=== PATIENT | female | born 1970 | race Caucasian/White ===

== ENCOUNTER 2019-10-27 23:00 | Emergency (ER) | payer BC ==
[2019-10-27] MEDS ORDERED: Sodium Chloride 0.9% 1,000 ML IV ONE (23:28)
[2019-10-27] MEDS ORDERED: Loperamide 2 MG Tab PO ONE (23:28)
--- NOTE | 2019-10-27 23:45 | EDM.PDOC ---
ED HPI GENERAL MEDICAL PROBLEM - General Chief Complaint: General Stated Complaint: Lower extremeity pain Time Seen by Provider: 10/27/19 23:19 Source of Information: Reports: Patient, EMS, Family History Limitations: Reports: Other (Patient not very helpful, uncertain if it is due to illness or behavioral issues or combination of both) - History of Present Illness INITIAL COMMENTS - FREE TEXT/NARRATIVE: Patient discharged yesterday from [facility] s/p left knee surgery and reportedly called EMS due to left leg pain. Ambulance concerned that patient had delayed cap refill. IV access obtained. Brought to ER for evaluation. Upon arrival patient moaning at times, keeps eyes shut. Alert and oriented however when spoken to. Assessment of lower extremities shows that both feet show a little dusky coloration in toes, but pulses equal. Left leg still orange from antiseptic scrub used for surgery. No obvious delayed capillary refill noted. It took multiple times asking patient/ why she presented to the ER/what changed today before finally getting an answer that inferred multiple loose stools that started this morning. No report of emesis. No specific complaint of fever/HEENT changes/Resp/CV. No reports of blood stool. No urinary track changes. No specific complaints of focal weakness. Did say to EMS that her left leg was numb. Not currently complaining of numbness when asked to report what specific things changed today/new symptoms she is experiencing. says patient is "always in pain". 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 Bilateral Lower Pain Score (Numeric/FACES): 6 - Related Data Allergies Allergy/AdvReac Type Severity Reaction Status Date / Time acetaminophen Allergy Nausea and Verified 11/16/18 20:40 [From Darvocet-N] Vomiting NSAIDS (Non-Steroidal Allergy Nausea and Verified 11/16/18 20:40 Anti-Inflamma Vomiting propoxyphene Allergy Nausea and Verified 11/16/18 20:40 [From Darvocet-N] Vomiting zaleplon [From Sonata] Allergy Other Verified 11/16/18 20:40 Home Meds: Home Meds Aspirin [Halfprin] 81 mg PO DAILY 11/16/18 [History] Doxepin [SINEquan] 25 mg PO BEDTIME PRN 11/16/18 [History] Gabapentin [Neurontin] 1,200 mg PO BEDTIME 11/16/18 [History] Gabapentin [Neurontin] 900 mg PO DAILY 11/16/18 [History] Omeprazole 20 mg PO BID 11/16/18 [History] Propranolol HCl [Propranolol] 60 mg PO BEDTIME 11/16/18 [History] QUEtiapine Fumarate [Quetiapine Fumarate] 25 mg PO TID 11/16/18 [History] Venlafaxine HCl [Venlafaxine ER] 300 mg PO DAILY 11/16/18 [History] busPIRone HCl [Buspirone HCl] 15 mg PO BID 11/16/18 [History] hydrOXYzine HCl [hydrOXYzine] 25 mg PO BID 11/16/18 [History] oxyCODONE HCl/Acetaminophen [Oxycodone-Acetaminophen 5-325] 1 tab PO Q8H PRN [History] Past Medical History HEENT History: Reports: Impaired Vision Gastrointestinal History: Reports: GERD 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 Psychiatric History: Reports: Anxiety, Depression, Suicidal Ideation Endocrine/Metabolic History: Reports: Obesity/BMI 30+ - Past Surgical History Neurological Surgical History: Reports: Other (See Below) (back surgery) Musculoskeletal Surgical History: Reports: Other (See Below) Other Musculoskeletal Surgeries/Procedures:: Surgical repairs to foot and knee Social & Family History - Tobacco Use Smoking Status *Q: Never Smoker Second Hand Smoke Exposure: No - Caffeine Use Caffeine Use: Reports: Coffee - Recreational Drug Use Recreational Drug Use: No ED ROS GENERAL - Review of Systems Review Of Systems: See Below (patient very difficult to obtain history from) Constitutional: Reports: Malaise. Denies: Fever, Chills, Diaphoresis HEENT: Reports: No Symptoms Respiratory: Reports: No Symptoms. Denies: Shortness of Breath Cardiovascular: Reports: No Symptoms GI/Abdominal: Reports: Abdominal Pain, Diarrhea. Denies: Black Stool, Bloody Stool, Constipation, Difficulty Swallowing, Distension, Nausea, Vomiting Musculoskeletal: Reports: Other (chronic pain patient/multiple areas, does not report acute pain changes) Skin: Reports: Other (recent surgery left knee. No new redness/swelling reported. ) Neurological: Reports: Numbness (left leg), Difficulty Walking. Denies: Confusion, Headache, Seizure, Syncope Psychiatric: Reports: Agitation, Anxiety ED EXAM, GENERAL - Physical Exam Exam: See Below Exam Limited By: Other (obese/poor movement ability) General Appearance: Alert, Obese, Other (keeps eyes shut, moans periodically, restless) Eye Exam: Bilateral Eye: EOMI, PERRL Nose: No: Nasal Deformity, Nasal Swelling, Nasal Drainage Throat/Mouth: Normal Voice, No Airway Compromise, Other (dry lips) Head: Atraumatic, Normocephalic Neck: Supple Respiratory/Chest: No Respiratory Distress, Lungs Clear, Normal Breath Sounds, No Accessory Muscle Use, Chest Non-Tender Cardiovascular: No Murmur, Tachycardia Peripheral Pulses: 2+: Radial (L), Radial (R), Dorsalis Pedis (L), Dorsalis Pedis (R) GI/Abdominal: Normal Bowel Sounds, Soft, Tender (diffuse tenderness all 4 quadrants). No: Guarding, Rigid, Rebound (Female) Exam: Deferred Rectal (Female) Exam: Deferred Extremities: Other (Patient observed to be wiggling toes/moving all four limbs spontaneously when on ER bed. However when asked to move her feet/push against resistance she said she could not. Equal pulses extremities. Dusky coloration to toes bilaterally/equally. No obvious circulation deficit left compared to right. ). No: Increased Warmth Neurological: Alert, Oriented, Slow to Respond Psychiatric: Anxious Skin Exam: Warm, Dry Course - Vital Signs Last Recorded V/S: Last Vital Signs Temp 36.8 C 10/27/19 23:09 Pulse 117 H 10/27/19 23:09 Resp 24 H 10/27/19 23:09 BP 123/62 10/27/19 23:09 Pulse Ox 100 10/27/19 23:09 - Orders/Labs/Meds Orders: Active Orders 24 hr Category Date Time Status CBC WITH AUTO DIFF [HEME] Stat Lab 10/27/19 23:03 Ordered CMP [COMPREHENSIVE METABOLIC PN,CMP] [CHEM] Stat Lab 10/27/19 23:03 Ordered D-DIMER QUANTITATIVE [COAG] Stat Lab 10/27/19 23:04 Ordered INR,PT,PROTHROMBIN TIME [COAG] Stat Lab 10/27/19 23:03 Ordered Sodium Chloride 0.9% [Normal Saline] 1,000 ml Med 10/27/19 23:28 Ordered IV .BOLUS diazePAM [Valium] Med 10/27/19 23:45 Once 5 mg IVPUSH ONETIME ONE Medication Orders Sodium Chloride (Normal Saline) 1,000 mls @ 999 mls/hr IV .BOLUS ONE Stop: 10/28/19 00:28 Meds: Medications Generic Name Dose Route Start Last Admin Trade Name Freq PRN Reason Stop Dose Admin Sodium Chloride 1,000 mls @ 999 mls/hr 10/27/19 23:28 Normal Saline IV 10/28/19 00:28 .BOLUS ONE Discontinued Medications Generic Name Dose Route Start Last Admin Trade Name Freq PRN Reason Stop Dose Admin Loperamide HCl 4 mg 10/27/19 23:28 Imodium Ad PO 10/27/19 23:29 ONETIME ONE - Re-Assessments/Exams Free Text/Narrative Re-Assessment/Exam: Given what history we were able to obtain, it appears that main issue today has been loose stools. Lab unable to draw off of IV. Made attempts to obtain blood for labs but patient screamed and ultimately refused any additional attempts, saying it caused her 'muscle spasms'. No obvious spasming noted. It was explained to patient that it was very important to obtain labs in order to assist in assessing for infection/electrolyte imbalance but patient continued to refuse. She ultimately wanted to be transferred to [facility] and be further assessed there. She does appear dehydrated given the dry lips, tachycardia, and history of diarrhea. No obvious signs of infection noted in left leg. Suspect behavioral component given her behavior in the ER/ some aspects of attention-seeking behavior/history of chronic pain and multiple psych meds. Refusing to move her feet during exam and claiming she can't right after being observed to move them spontaneously and frequently prior to exam is example. She is in need of having labs performed. Ortho/US also available for further evaluation of left leg if indicated. 10/28/19 00:09 Patient accepted for transfer to [facility] by Departure - Departure Time of Disposition: 00:06 Disposition: DC/Tfer to Acute Hospital 02 Condition: Good Clinical Impression: Anxiety, Diarrhea with dehydration, Uncooperative behavior, Status post left knee surgery - Discharge Information Forms: ED Department Discharge - My Orders Last 24 Hours: My Active Orders 10/27/19 23:03 CBC WITH AUTO DIFF [HEME] Stat CMP [COMPREHENSIVE METABOLIC PN,CMP] [CHEM] Stat INR,PT,PROTHROMBIN TIME [COAG] Stat 10/27/19 23:04 D-DIMER QUANTITATIVE [COAG] Stat 10/27/19 23:28 Sodium Chloride 0.9% [Normal Saline] 1,000 ml IV .BOLUS 10/27/19 23:45 diazePAM [Valium] 5 mg IVPUSH ONETIME ONE - Assessment/Plan Last 24 Hours: My Active Orders 10/27/19 23:03 CBC WITH AUTO DIFF [HEME] Stat CMP [COMPREHENSIVE METABOLIC PN,CMP] [CHEM] Stat INR,PT,PROTHROMBIN TIME [COAG] Stat 10/27/19 23:04 D-DIMER QUANTITATIVE [COAG] Stat 10/27/19 23:28 Sodium Chloride 0.9% [Normal Saline] 1,000 ml IV .BOLUS 10/27/19 23:45 diazePAM [Valium] 5 mg IVPUSH ONETIME ONE
== END 2019-10-28 00:40 ==
LOC: LL.ED 23:00
DX: E86.0 Dehydration (principal); R19.7 Diarrhea, unspecified; F41.9 Anxiety disorder, unspecified; R46.89 Other symptoms and signs involving appearance and behavior; Z98.890 Other specified postprocedural states; K21.9 Gastro-esophageal reflux disease without esophagitis; M19.90 Unspecified osteoarthritis, unspecified site; F32.9 Major depressive disorder, single episode, unspecified; E66.9 Obesity, unspecified; Z68.45 Body mass index [BMI] 70 or greater, adult; Z88.8 Allergy status to other drugs, medicaments and biological substances; Z79.82 Long term (current) use of aspirin; Z79.899 Other long term (current) drug therapy
CPT/HCPCS: 96361; 96374; 99284-25; A9270-GY; J3360; J7030

== ENCOUNTER 2019-10-29 07:11 | Observation (INO) | payer BC ==
[2019-10-29 07:49] LABS: CHLORIDE,CL 103 mmol/L (98-107); SODIUM,NA 140 mmol/L (136-145)
[2019-10-29] MEDS ORDERED: Sodium Chloride 0.9% 10 ML Syringe FLUSH PRN (07:54)
--- NOTE | 2019-10-29 08:02 | EDM.PDOC ---
ED HPI GENERAL MEDICAL PROBLEM - General Chief Complaint: Gastrointestinal Problem Stated Complaint: nausea, vomitting, diarrhea Time Seen by Provider: 10/29/19 07:42 Source of Information: Reports: Patient History Limitations: Reports: No Limitations - History of Present Illness INITIAL COMMENTS - FREE TEXT/NARRATIVE: Patient returns to ER complaining of continued nausea/emesis/loose stools. Was seen for same late Tuesday night near midnight. Had vomiting and loose stools all day. Labs performed but patient refused to have another IV attempt performed and wanted to go to [place] for any additional attempts. She reports that [facility] performed abdominal and chest xrays as well as labs early yesterday morning and said that nothing specifically was identified. They felt that patient had viral gastroenteritis. 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 Imodium slowed the stools. Nausea meds did not help much. She estimates approx 4 loose stools since midnight and about 10 episodes of emesis. Non-bloody. Has had chills. No fever. Cannot keep anything down, even sips water. Complains of metal taste in mouth. Diffuse abdominal pain. Denies cold symptoms/HEENT changes. No respiratory complaints such as cough/SOB Denies chest pain/CV changes. No report of UTI complaints/hematuria. Not complaining of any muscle spasms/neuro changes at this time. Abdominal Pain Score (Numeric/FACES): 5 - Related Data Allergies Allergy/AdvReac Type Severity Reaction Status Date / Time acetaminophen Allergy Nausea and Verified 11/16/18 20:40 [From Darvocet-N] Vomiting NSAIDS (Non-Steroidal Allergy Nausea and Verified 11/16/18 20:40 Anti-Inflamma Vomiting propoxyphene Allergy Nausea and Verified 11/16/18 20:40 [From Darvocet-N] Vomiting zaleplon [From Sonata] Allergy Other Verified 11/16/18 20:40 Home Meds: Home Meds Aspirin [Halfprin] 81 mg PO DAILY 11/16/18 [History] Doxepin [SINEquan] 25 mg PO BEDTIME PRN 11/16/18 [History] Gabapentin [Neurontin] 1,200 mg PO BEDTIME 11/16/18 [History] Gabapentin [Neurontin] 900 mg PO DAILY 11/16/18 [History] Omeprazole 20 mg PO BID 11/16/18 [History] Propranolol HCl [Propranolol] 60 mg PO BEDTIME 11/16/18 [History] QUEtiapine Fumarate [Quetiapine Fumarate] 25 mg PO TID 11/16/18 [History] Venlafaxine HCl [Venlafaxine ER] 300 mg PO DAILY 11/16/18 [History] busPIRone HCl [Buspirone HCl] 15 mg PO BID 11/16/18 [History] hydrOXYzine HCl [hydrOXYzine] 25 mg PO BID 11/16/18 [History] oxyCODONE HCl/Acetaminophen [Oxycodone-Acetaminophen 5-325] 1 tab PO Q8H PRN [History] Past Medical History HEENT History: Reports: Impaired Vision Gastrointestinal History: Reports: GERD 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 Psychiatric History: Reports: Anxiety, Depression, Suicidal Ideation Endocrine/Metabolic History: Reports: Obesity/BMI 30+ - Past Surgical History Neurological Surgical History: Reports: Other (See Below) Musculoskeletal Surgical History: Reports: Other (See Below) Other Musculoskeletal Surgeries/Procedures:: Surgical repairs to foot and knee Social & Family History - Tobacco Use Smoking Status *Q: Never Smoker Second Hand Smoke Exposure: No - Caffeine Use Caffeine Use: Reports: Soda - Recreational Drug Use Recreational Drug Use: No ED ROS GENERAL - Review of Systems Review Of Systems: Comprehensive ROS is negative, except as noted in HPI. ED EXAM, GENERAL - Physical Exam Exam: See Below Exam Limited By: No Limitations General Appearance: Obese, Other (Awake, appears uncomfortable) Eye Exam: Bilateral Eye: EOMI, PERRL Nose: No: Nasal Deformity, Nasal Swelling Throat/Mouth: Normal Voice, No Airway Compromise, Other (dry lips) Head: Atraumatic, Normocephalic Neck: Supple, Non-Tender Respiratory/Chest: No Respiratory Distress, Lungs Clear, Normal Breath Sounds, No Accessory Muscle Use, Chest Non-Tender Cardiovascular: No Murmur, Tachycardia Peripheral Pulses: 2+: Radial (L), Radial (R) GI/Abdominal: Other (bowel sounds present all quads. Diffuse tenderness with palpation all quads but more pronounced in RUQ) (Female) Exam: Deferred Rectal (Female) Exam: Deferred Back Exam: Other (no acute changes identified) Extremities: Non-Tender, Slow Capillary Refill (3 sec) Neurological: Alert, Oriented, Normal Cognition Psychiatric: Flat Affect Skin Exam: Warm, Dry, Intact, Normal Color Course - Vital Signs Last Recorded V/S: Last Vital Signs Temp 36.1 C 10/29/19 07:11 Pulse 111 H 10/29/19 07:11 Resp 20 10/29/19 07:11 BP 143/82 H 10/29/19 07:11 Pulse Ox 100 10/29/19 07:11 - Orders/Labs/Meds Orders: Active Orders 24 hr Category Date Time Status CULTURE BLOOD [BC] Stat Lab 10/29/19 07:56 Ordered CULTURE BLOOD [BC] Stat Lab 10/29/19 07:56 Ordered LACTIC ACID [CHEM] Stat Lab 10/29/19 07:55 Ordered MG [MAGNESIUM] [CHEM] Stat Lab 10/29/19 07:55 Ordered UA W/MICROSCOPIC [URIN] Stat Lab 10/29/19 07:23 Ordered Sodium Chloride 0.9% [Saline Flush] Med 10/29/19 07:23 Active 10 ml FLUSH ASDIRECTED PRN Sodium Chloride 0.9% [Saline Flush] Med 10/29/19 07:54 Ordered 10 ml FLUSH ASDIRECTED PRN Blood Culture x2 Reflex Set [OM.PC] Stat Oth 10/29/19 07:55 Ordered Saline Lock Insert [OM.PC] Routine Oth 10/29/19 07:23 Ordered Saline Lock Insert [OM.PC] Routine Oth 10/29/19 07:55 Ordered Medication Orders Sodium Chloride (Saline Flush) 10 ml FLUSH ASDIRECTED PRN PRN Reason: Keep Vein Open Sodium Chloride (Saline Flush) 10 ml FLUSH ASDIRECTED PRN PRN Reason: Keep Vein Open Labs: Laboratory Tests 10/29/19 10/29/19 Range/Units 07:25 07:25 WBC 13.1 H (4.0-10.2) K/uL RBC 3.76 L (3.77-5.09) M/uL Hgb 11.1 L D (11.7-15.5) g/dL Hct 33.8 L (34.0-46.0) % MCV 89.9 D (84.0-98.0) fL MCH 29.5 (28.2-33.3) pg MCHC 32.8 (31.7-36.0) g/dL RDW 11.5 (11.2-14.1) % Plt Count 406 H D (150-350) K/uL Neut % (Auto) 65.5 (45.0-80.0) % Lymph % (Auto) 21.3 (10.0-50.0) % [place] % (Auto) 10.7 (2.0-14.0) % Eos % (Auto) 2.1 (0.0-5.0) % Baso % (Auto) 0.4 (0.0-2.0) % Neut # (Auto) 8.59 H (1.40-7.00) K/uL Lymph # (Auto) 2.80 (0.50-3.50) K/uL Knox # (Auto) 1.40 H (0.00-1.00) K/uL Eos # (Auto) 0.28 (0.00-0.50) K/uL Baso # (Auto) 0.05 (0.00-0.20) K/uL Sodium 140 (136-145) mmol/L Potassium 3.1 L (3.5-5.1) mmol/L Chloride 103 (98-107) mmol/L Carbon Dioxide 17.3 L D (21.0-32.0) mmol/L BUN 6 L (7-18) mg/dL Creatinine 0.46 L (0.51-1.17) mg/dL Est Cr Clr Drug Dosing 106.26 mL/min Estimated GFR (MDRD) > 60 mL/min Glucose 128 H (74-106) mg/dL Calcium 9.1 (8.5-10.1) mg/dL Total Bilirubin 0.6 (0.2-1.0) mg/dL AST 26 (15-37) U/L ALT 30 (12-78) U/L Alkaline Phosphatase 86 (46-116) IU/L Total Protein 7.9 (6.4-8.2) g/dL Albumin 3.1 L (3.4-5.0) g/dL Meds: Medications Generic Name Dose Route Start Last Admin Trade Name Freq PRN Reason Stop Dose Admin Sodium Chloride 10 ml 10/29/19 07:23 Saline Flush FLUSH ASDIRECTED PRN Keep Vein Open Sodium Chloride 10 ml 10/29/19 07:54 Saline Flush FLUSH ASDIRECTED PRN Keep Vein Open - Re-Assessments/Exams Free Text/Narrative Re-Assessment/Exam: 10/29/19 08:12 Labs drawn. WBC 13.1 Hgb 11.1 Plat 406 K3.1 Continue to suspect gastroenteritis of viral etiology given history and physical. Patient dehydrated. Hypokalemia. Will admit to observation for IV fluids. Imaging studies performed yesterday at [place]. May need to repeat depending on patient's clinical course. Departure - Departure Time of Disposition: 08:16 Disposition: Refer to Observation Condition: Good Clinical Impression: Gastroenteritis, Dehydration - Discharge Information *PRESCRIPTION DRUG MONITORING PROGRAM REVIEWED*: Not Applicable *COPY OF PRESCRIPTION DRUG MONITORING REPORT IN PATIENT HIRAM: Not Applicable Forms: ED Department Discharge - Problem List & Annotations (1) Gastroenteritis SNOMED Code(s): 14013855 Code(s): K52.9 - NONINFECTIVE GASTROENTERITIS AND COLITIS, UNSPECIFIED Status: Acute Priority: High Current Visit: Yes Onset Date: 10/27/19 Annotation/Comment:: Patient to be placed NPO. Antinausea meds/IV fluids. Blood cultures obtained. (2) Dehydration SNOMED Code(s): 25392017 Code(s): E86.0 - DEHYDRATION Status: Acute Priority: High Current Visit : Yes Annotation/Comment:: IV fluids ordered. (3) Hypokalemia SNOMED Code(s): 25054795 Code(s): E87.6 - HYPOKALEMIA Status: Acute Priority: Medium Current Visit: Yes Annotation/Comment:: Replacement therapy ordered. (4) Status post left knee surgery SNOMED Code(s): 821301766 Code(s): Z98.890 - OTHER SPECIFIED POSTPROCEDURAL STATES Status: Acute Priority: Medium Current Visit: Yes Annotation/Comment:: S/P recent left knee surgery performed at [facility]. TKA. (5) Anxiety SNOMED Code(s): 30918583 Code(s): F41.9 - ANXIETY DISORDER, UNSPECIFIED Status: Chronic Priority: Medium Current Visit: Yes Annotation/Comment:: observe (6) Chronic back pain SNOMED Code(s): 678510212 Code(s): M54.9 - DORSALGIA, UNSPECIFIED; G89.29 - OTHER CHRONIC PAIN Status : Chronic Priority: Low Current Visit: No Annotation/Comment:: observe (7) Depressive disorder SNOMED Code(s): 35818238 Code(s): F32.9 - MAJOR DEPRESSIVE DISORDER, SINGLE EPISODE, UNSPECIFIED Status: Chronic Priority: High Current Visit: No Annotation/Comment:: Stable per history (8) GERD (gastroesophageal reflux disease) SNOMED Code(s): 916600830 Code(s): K21.9 - GASTRO-ESOPHAGEAL REFLUX DISEASE WITHOUT ESOPHAGITIS Status: Chronic Priority: Low Current Visit: No Annotation/Comment:: Currently under good control Qualifiers: Esophagitis presence: esophagitis presence not specified Qualified Code(s) : K21.9 - Gastro-esophageal reflux disease without esophagitis (9) Hypertension SNOMED Code(s): 37212155 Code(s): I10 - ESSENTIAL (PRIMARY) HYPERTENSION Status: Chronic Priority : Medium Current Visit: No Annotation/Comment:: Observe trends Qualifiers: Hypertension type: essential hypertension Qualified Code(s): I10 - Essential (primary) hypertension (10) Morbid obesity SNOMED Code(s): 635139656 Code(s): E66.01 - MORBID (SEVERE) OBESITY DUE TO EXCESS CALORIES Status: Chronic Priority: Low Current Visit: No (11) Osteoarthritis SNOMED Code(s): 063973044 Code(s): M19.90 - UNSPECIFIED OSTEOARTHRITIS, UNSPECIFIED SITE Status: Chronic Priority: Low Current Visit: No Annotation/Comment:: Chronic pain issues with knees, feet, and back - Problem List Review Problem List Initiated/Reviewed/Updated: Yes - My Orders Last 24 Hours: My Active Orders 10/29/19 07:23 UA W/MICROSCOPIC [URIN] Stat Sodium Chloride 0.9% [Saline Flush] 10 ml FLUSH ASDIRECTED PRN Saline Lock Insert [OM.PC] Routine 10/29/19 07:54 Sodium Chloride 0.9% [Saline Flush] 10 ml FLUSH ASDIRECTED PRN 10/29/19 07:55 LACTIC ACID [CHEM] Stat MG [MAGNESIUM] [CHEM] Stat Blood Culture x2 Reflex Set [OM.PC] Stat Saline Lock Insert [OM.PC] Routine 10/29/19 07:56 CULTURE BLOOD [BC] Stat CULTURE BLOOD [BC] Stat - Assessment/Plan Admission H&P: Please use this note as an admission H&P Last 24 Hours: My Active Orders 10/29/19 07:23 UA W/MICROSCOPIC [URIN] Stat Sodium Chloride 0.9% [Saline Flush] 10 ml FLUSH ASDIRECTED PRN Saline Lock Insert [OM.PC] Routine 10/29/19 07:54 Sodium Chloride 0.9% [Saline Flush] 10 ml FLUSH ASDIRECTED PRN 10/29/19 07:55 LACTIC ACID [CHEM] Stat MG [MAGNESIUM] [CHEM] Stat Blood Culture x2 Reflex Set [OM.PC] Stat Saline Lock Insert [OM.PC] Routine 10/29/19 07:56 CULTURE BLOOD [BC] Stat CULTURE BLOOD [BC] Stat Assessment:: as above Plan: as above. Patient stable and suitable for general supervision. Once patient moved into hospital room she appeared significantly more comfortable. No specific interventions had been performed. Watching TV. Suspect anxiety component to ongoing issues/complaints.
[2019-10-29] MEDS ORDERED: Potassium Chloride 10 MEQ in Premix Bag 1 BAG IV ONE ×2 (08:57→12:00)
[2019-10-29] MEDS ORDERED: Sodium Chloride 0.9% 1,000 ML IV ONE (08:57)
[2019-10-29] MEDS ORDERED: Prochlorperazine 10 MG in Sodium Chloride 0.9% 100 ML IV ONE (08:59)
[2019-10-29] MEDS ORDERED: Ondansetron 4 MG/2 ML SDV IVPUSH PRN (09:00)
[2019-10-29] MEDS ORDERED: Loperamide 2 MG Tab PO PRN (09:00)
[2019-10-29] MEDS ORDERED: Prochlorperazine 10 MG/2 ML SDV IM ONE (09:15)
[2019-10-29] MEDS ORDERED: Sodium Chloride 0.9% 1,000 ML IV SCH (10:00)
[2019-10-29] MEDS ORDERED: LORazepam 1 MG Tab PO PRN (11:00)
[2019-10-29] MEDS ORDERED: Orphenadrine 100 MG Tab.ER PO PRN (11:09)
[2019-10-29] MEDS ORDERED: Pantoprazole 40 MG Vial IVPUSH SCH (11:30)
[2019-10-29] MEDS ORDERED: Famotidine 20 MG/2 ML SDV IVPUSH SCH (11:30)
[2019-10-29] MEDS: Aspirin 325 MG Tab PO SCH ×2 (12:12→17:46)
[2019-10-29] MEDS: Sodium Chloride 0.9% 10 ML Syringe FLUSH PRN ×2 (12:12→19:40)
[2019-10-29] MEDS: Venlafaxine 75 MG Cap.ER PO SCH (12:12)
[2019-10-29] MEDS: Pregabalin 75 MG Cap PO SCH (17:46)
[2019-10-29] MEDS ORDERED: cefTRIAXone 1 GM in Sodium Chloride 0.9% 100 ML IV SCH (18:00)
[2019-10-29] MEDS ORDERED: Enoxaparin 40 MG/0.4 ML Syringe SUBCUT SCH (18:00)
[2019-10-29] MEDS ORDERED: Potassium Chloride 20 MEQ Tab.ER PO ONE (18:00)
[2019-10-29] MEDS: cefTRIAXone 1 GM in Sodium Chloride 0.9% 100 ML IV SCH (18:19)
[2019-10-29] MEDS: Lactated Ringers 1,000 ML IV SCH (19:40)
[2019-10-29] MEDS ORDERED: Doxepin 25 MG Cap PO SCH (20:00)
[2019-10-29] MEDS ORDERED: Propranolol 60 MG Cap.ER PO SCH (20:00)
[2019-10-29] MEDS ORDERED: Temazepam 15 MG Cap PO PRN (20:12)
[2019-10-29] MEDS: Pantoprazole 40 MG Vial IVPUSH SCH (20:39)
[2019-10-29] MEDS: Famotidine 20 MG/2 ML SDV IVPUSH SCH (20:39)
[2019-10-30] MEDS: Lactated Ringers 1,000 ML IV SCH (05:59)
[2019-10-30] MEDS: cefTRIAXone 1 GM in Sodium Chloride 0.9% 100 ML IV SCH (06:06)
[2019-10-30 07:44] LABS: CHLORIDE,CL 107 mmol/L (98-107); SODIUM,NA 143 mmol/L (136-145)
[2019-10-30] MEDS: Pregabalin 75 MG Cap PO SCH (08:15)
[2019-10-30] MEDS: Venlafaxine 75 MG Cap.ER PO SCH (08:15)
[2019-10-30] MEDS: Aspirin 325 MG Tab PO SCH (08:15)
[2019-10-30] MEDS: Pantoprazole 40 MG Vial IVPUSH SCH (08:15)
[2019-10-30] MEDS: Sodium Chloride 0.9% 10 ML Syringe FLUSH PRN (08:16)
[2019-10-30] MEDS: Famotidine 20 MG/2 ML SDV IVPUSH SCH (08:16)
[2019-10-30] MEDS ORDERED: Acetaminophen 325 MG Tab PO PRN (08:30)
--- NOTE | 2019-10-30 14:56 | PCM.DCSUM1 ---
Discharge Summary - Hospital Course HPI Initial Comments: See emergency room note/admission H&P Brief History: See emergency room note/admission H&P Diagnosis: Stroke: No Modified [place] Scale: No Symptoms at All Modified [place] Scale Score: 0 - Discharge Data Discharge Date: 10/30/19 Discharge Disposition: Home, Self-Care 01 Condition: Good - Referral to Home Health Primary Care Physician: PCP Unknown - Discharge Diagnosis/Problem(s) (1) Gastroenteritis SNOMED Code(s): 63895460 ICD Code: K52.9 - NONINFECTIVE GASTROENTERITIS AND COLITIS, UNSPECIFIED Status: Acute Priority: High Current Visit: Yes Onset Date: 10/27/19 Problem Details: She was initially nothing by mouth, however tolerated slow advancement of diet only after admission. IV hydration as above. Probable viral etiology, however note IV Rocephin as below for her UTI. Excellent results to therapy as below. (2) UTI (urinary tract infection) SNOMED Code(s): 37328265 ICD Code: N39.0 - URINARY TRACT INFECTION, SITE NOT SPECIFIED Status: Acute Priority: High Current Visit: Yes Onset Date: ~10/29/19 Problem Details: High-dose IV Rocephin therapy initiated during this hospitalization. Improved leukocytosis prior to discharge. Patient will be discharged on Macrobid with close follow-up by regular provider. Urine specimen for culture and sensitivity still pending. Qualifiers: Urinary tract infection type: acute cystitis Hematuria presence: without hematuria Qualified Code(s): N30.00 - Acute cystitis without hematuria (3) Mixed anxiety depressive disorder SNOMED Code(s): 159297170 ICD Code: F41.8 - OTHER SPECIFIED ANXIETY DISORDERS Status: Chronic Priority: Medium Current Visit: Yes Problem Details: Moderate control based on this hospitalization. Continue to observe closely by her regular provider. Emotional support provided. Note that extra oral Ativan was required during this hospitalization for patient comfort and control of her anxiety, although this will not be prescribed at discharge. In addition, the patient was counseled to stop use of all narcotic medications at this time with no narcotic medications required during this hospitalization. (4) Hypoalbuminemia SNOMED Code(s): 631272632 ICD Code: E88.09 - OTH DISORDERS OF PLASMA-PROTEIN METABOLISM, NEC Status: Acute Priority: Medium Current Visit: Yes Onset Date: 10/29/19 Problem Details: Observe for now. Consider high protein Glucerna supplements. (5) Peripheral neuropathy SNOMED Code(s): 850246352 ICD Code: G62.9 - POLYNEUROPATHY, UNSPECIFIED Status: Chronic Priority: Medium Current Visit: Yes Problem Details: Continue current medical therapy. Qualifiers: Peripheral neuropathy type: polyneuropathy, unspecified Qualified Code(s): G62.9 - Polyneuropathy, unspecified (6) Anemia SNOMED Code(s): 991957639 ICD Code: D64.9 - ANEMIA, UNSPECIFIED Status: Acute Priority: High Current Visit: Yes Onset Date: 10/30/19 Problem Details: Mild progressive anemia during this hospitalization, however no direct evidence of acute GI bleed , etc.. Possible postoperative anemia from recent knee surgery. Iron studies, etc. to be conducted at follow-up as per discharge instructions. Further workup depending on her clinical course. Qualifiers: Anemia type: other cause (7) Dehydration SNOMED Code(s): 23764973 ICD Code: E86.0 - DEHYDRATION Status: Acute Priority: Medium Current Visit: Yes Problem Details: Aggressive IV hydration during this hospitalization with resolved dehydration at time of discharge based on clinical exam. Mild dehydration likely secondary to her viral GE as above. (8) Status post left knee surgery SNOMED Code(s): 800144700 ICD Code: Z98.890 - OTHER SPECIFIED POSTPROCEDURAL STATES Status: Acute Priority: Medium Current Visit: Yes Problem Details: S/P recent left knee surgery performed at [facility]. TKA. PT and OT ordered during this hospitalization, which will be continued on an outpatient basis. (9) GERD (gastroesophageal reflux disease) SNOMED Code(s): 078652972 ICD Code: K21.9 - GASTRO-ESOPHAGEAL REFLUX DISEASE WITHOUT ESOPHAGITIS Status: Chronic Priority: Medium Current Visit: Yes Problem Details: Currently under good control Qualifiers: Esophagitis presence: esophagitis presence not specified Qualified Code(s) : K21.9 - Gastro-esophageal reflux disease without esophagitis (10) Hypertension SNOMED Code(s): 82758131 ICD Code: I10 - ESSENTIAL (PRIMARY) HYPERTENSION Status: Chronic Priority : Medium Current Visit: Yes Problem Details: The blood pressures were under moderate control during this hospitalization. No change in medical therapy for now. Note anxiety component. Close follow-up by regular provider with medication changes depending on her clinical course. Qualifiers: Hypertension type: essential hypertension Qualified Code(s): I10 - Essential (primary) hypertension (11) Morbid obesity SNOMED Code(s): 930997910 ICD Code: E66.01 - MORBID (SEVERE) OBESITY DUE TO EXCESS CALORIES Status: Chronic Priority: Medium Current Visit: Yes Problem Details: Weight Loss in moderation strongly advisable. (12) Osteoarthritis SNOMED Code(s): 137078171 ICD Code: M19.90 - UNSPECIFIED OSTEOARTHRITIS, UNSPECIFIED SITE Status: Chronic Priority: Medium Current Visit: Yes Problem Details: Chronic pain issues with knees, feet, and back, however stable during this hospitalization. Qualifiers: Osteoarthritis location: multiple joints Osteoarthritis type: primary Qualified Code(s): M15.0 - Primary generalized (osteo)arthritis (13) Hypokalemia SNOMED Code(s): 51155204 ICD Code: E87.6 - HYPOKALEMIA Status: Acute Priority: Medium Current Visit: Yes Problem Details: Improved prior to discharge with aggressive IV and oral supplementation. Continue to observe closely by regular provider. Note hypokalemia likely secondary to diarrhea from her viral gastroenteritis. - Patient Summary/Data Operative Procedure(s) Performed: None Complications: None Consults: Consultations 10/29/19 08:53 Consult to Physical Therapy [PT Evaluation and Treatment] [CONS] Routine OT Evaluation and Treatment [CONS] Routine Labs Pending at D/C: 1. Final blood culture and sensitivity results 2 2. Final urine culture and sensitivity results Recommended Follow-up Testing/Procedures: As per discharge instructions Planned Operative Procedure(s) after DC: None Hospital Course: Patient was placed in observation status with aggressive IV hydration and both oral and IV potassium supplementation as above. She responded extremely well to above treatment measures. Note newly diagnosed UTI during this hospitalization with patient started on IV Rocephin as above. Eyes no complications during this hospitalization - Patient Instructions Diet: Heart Healthy Diet Activity: As Tolerated (And directed by PT and OT) Driving: Do Not Drive Showering/Bathing: May Shower Wound/Incision Care: Keep Operative Site/Wound Site Clean and Dry Notify Provider of: Fever, Increased Pain, Swelling and Redness, Drainage, Nausea and/or Vomiting Other/Special Instructions: 1. Followup with your regular provider in 10-14 days as directed and recommended CBC, comprehensive metabolic panel, UA, and urine with culture and sensitivity. Bring these discharge instructions with you to that visit. 2. Continue PT and OT as already scheduled. 3. Immediately after this visit verify that your cellular telephone's voicemail has been activated and is empty. Also verify that your home telephone's answering machine is operating properly and has space to receive messages. Note that it is sometimes necessary for us to be able to contact you at a later date to discuss your medical care. 4. Please remember that we are ALWAYS here for you and want to answer any questions you may have. Feel free to call the hospital any time and we call you back VONDA. - Discharge Plan *PRESCRIPTION DRUG MONITORING PROGRAM REVIEWED*: Not Applicable *COPY OF PRESCRIPTION DRUG MONITORING REPORT IN PATIENT HIRAM: Not Applicable Prescriptions/Med Rec: Nitrofurantoin Monohyd/M-Cryst [Macrobid 100 mg Capsule] 100 mg PO BIDMEALS #20 capsule Home Medications: Home Meds Doxepin [SINEquan] 25 mg PO BEDTIME 11/16/18 [History] Omeprazole 20 mg PO BIDMEALS 11/16/18 [History] Propranolol HCl [Propranolol] 60 mg PO BEDTIME 11/16/18 [History] Venlafaxine HCl [Venlafaxine ER] 150 mg PO DAILY 11/16/18 [History] hydrOXYzine HCl [hydrOXYzine] 25 mg PO TID 11/16/18 [History] Aspirin 325 mg PO [id number] 10/29/19 [History] Famotidine [Pepcid] 40 mg PO BEDTIME 10/29/19 [History] Naproxen Sodium [Aleve] 2 tab PO Q12H PRN 10/29/19 [History] Orphenadrine [Norflex] 1 tab PO BID PRN 10/29/19 [History] Pregabalin [Lyrica] 75 mg PO BID 10/29/19 [History] Promethazine [Phenergan] 25 mg PO Q6H PRN 10/29/19 [History] Acetaminophen [Tylenol] 650 mg PO Q4H PRN tablet 10/30/19 [Rx] Nitrofurantoin Monohyd/M-Cryst [Macrobid 100 mg Capsule] 100 mg PO BIDMEALS #20 capsule 10/30/19 [Rx] Oxygen Therapy Mode: Room Air Patient Handouts: Potassium chloride tablets, extended-release tablets or capsules, Ceftriaxone injection, Prochlorperazine injection, Enoxaparin injection, Urinary Tract Infection, Adult, [id number], Dehydration, Adult, [id number], Nausea and Vomiting, Adult Forms: ED Department Discharge Referrals: PCP,Unknown [Primary Care Provider] - - Discharge Summary/Plan Comment DC Time >30 min.: Yes (Coordination of care ) Discharge Summary/Plan Comment: As above. Extensive precautions were given to the patient, who is in agreement with the treatment plan. Instructions - General Info Date of Service: 10/30/19 Admission Dx/Problem (Free Text: 1. Viral gastroenteritis 2. Dehydration Functional Status: Reports: Pain Controlled, Tolerating Diet, Ambulating, Urinating. Denies: New Symptoms, Incentive Spirometry Numeric/FACES Score: 4 - Review of Systems General: Reports: No Symptoms. Denies: Fever, Weakness, Fatigue, Malaise, Chills, Night Sweats, Appetite (Appetite good) HEENT: Reports: No Symptoms. Denies: Dysphasia, Ear Pain, Eye Pain, Headaches, Post Nasal Drip, Sinus Congestion, Sore Throat, Rhinitis, Visual Changes Pulmonary: Reports: No Symptoms. Denies: Shortness of Breath, Pleuritic Chest Pain, Cough, Sputum, Hemoptysis, Wheezing Cardiovascular: Reports: Edema (Stable dependent). Denies: Chest Pain, Palpitations, Dyspnea on Exertion, Orthopnea, PND, Lightheadedness Gastrointestinal: Reports: No Symptoms, Other (Normal bowel movement yesterday evening). Denies: Abdominal Pain, Constipation, Decreased Appetite, Diarrhea, Difficulty Swallowing, Flatus, Hematochezia, Melena, Nausea, Vomiting Genitourinary: Reports: No Symptoms. Denies: Dysuria, Frequency, Burning, Pain , Urgency, Hematuria, Retention, Flank Pain Musculoskeletal: Reports: Joint Pain (Left knee postoperative), Joint Swelling ( Mild postoperative). Denies: Neck Pain, Shoulder Pain, Arm Pain, Back Pain, Leg Pain Skin: Denies: Diaphoresis, Pruritis, Rash Neurological: Reports: Difficulty Walking (Minimal secondary to postoperative surgery). Denies: Confusion, Dizziness, Numbness, Paresthesia, Tingling, Weakness Psychiatric: Reports: Depression (Mild), Anxiety (Mild to moderate). Denies: Confusion, Agitation, Cravings, Hallucinations - Patient Data Vitals - Most Recent: Last Vital Signs Temp 36.2 C 12/10/19 11:51 Pulse 77 10/30/19 11:51 Resp 16 10/30/19 11:51 BP 141/82 H 10/30/19 11:51 Pulse Ox 100 10/30/19 11:51 Vital Signs - 24 hr 10/29/19 10/30/19 10/30/19 18:00 00:00 04:16 Temperature [ 36.6 C Oral] Temperature [ 36.4 C 36.8 C Temporal] Pulse, 93 Peripheral [ Left Pulse Oximetry] Pulse, 99 84 Peripheral [ Right Pulse Oximetry] Respiratory 16 16 20 Rate Blood Pressure 172/79 H 152/88 H [Left Upper Arm ] Blood Pressure 143/85 H [Right Upper Arm] O2 Sat by Pulse 100 100 100 Oximetry 10/30/19 10/30/19 07:26 11:51 Temperature [ Oral] Temperature [ 36.3 C 36.2 C Temporal] Pulse, 80 77 Peripheral [ Left Pulse Oximetry] Pulse, Peripheral [ Right Pulse Oximetry] Respiratory 14 16 Rate Blood Pressure [Left Upper Arm ] Blood Pressure 143/93 H 141/82 H [Right Upper Arm] O2 Sat by Pulse 100 100 Oximetry Weight - Most Recent: 105.233 kg I&O - Last 24 hours: Intake & Output 10/29/19 10/30/19 10/30/19 22:59 06:59 14:59 Intake Total 1078 986 360 Output Total 800 750 Balance 1078 186 -390 Imaging Impressions - Last 24 hrs: None Lab Results - Last 24 hrs: Laboratory Results - last 24 hr 10/29/19 10/30/19 10/30/19 Range/Units 15:15 07:20 07:20 WBC 10.9 H (4.0-10.2) K/uL RBC 3.62 L (3.77-5.09) M/uL Hgb 10.7 L (11.7-15.5) g/dL Hct 33.5 L (34.0-46.0) % MCV 92.5 (84.0-98.0) fL MCH 29.6 (28.2-33.3) pg MCHC 31.9 (31.7-36.0) g/dL RDW 11.8 (11.2-14.1) % Plt Count 341 (150-350) K/uL Neut % (Auto) 56.4 (45.0-80.0) % Lymph % (Auto) 26.7 (10.0-50.0) % [place]ike % (Auto) 12.5 (2.0-14.0) % Eos % (Auto) 3.9 (0.0-5.0) % Baso % (Auto) 0.5 (0.0-2.0) % Neut # (Auto) 6.15 (1.40-7.00) K/uL Lymph # (Auto) 2.92 (0.50-3.50) K/uL Pike # (Auto) 1.37 H (0.00-1.00) K/uL Eos # (Auto) 0.43 (0.00-0.50) K/uL Baso # (Auto) 0.05 (0.00-0.20) K/uL Sodium 143 (136-145) mmol/L Potassium 3.1 L 3.4 L (3.5-5.1) mmol/L Chloride 107 (98-107) mmol/L Carbon Dioxide 23.9 (21.0-32.0) mmol/L BUN 3 L (7-18) mg/dL Creatinine 0.47 L (0.51-1.17) mg/dL Est Cr Clr Drug Dosing 104.00 mL/min Estimated GFR (MDRD) > 60 mL/min Glucose 104 (74-106) mg/dL Calcium 8.6 (8.5-10.1) mg/dL Total Bilirubin 0.3 (0.2-1.0) mg/dL AST 23 (15-37) U/L ALT 27 (12-78) U/L Alkaline Phosphatase 75 (46-116) IU/L Total Protein 7.0 (6.4-8.2) g/dL Albumin 2.7 L (3.4-5.0) g/dL Laboratory Tests 10/29/19 10/29/19 10/29/19 Range/Units 07:25 07:25 07:25 WBC 13.1 H (4.0-10.2) K/uL RBC 3.76 L (3.77-5.09) M/uL Hgb 11.1 L D (11.7-15.5) g/dL Hct 33.8 L (34.0-46.0) % MCV 89.9 D (84.0-98.0) fL MCH 29.5 (28.2-33.3) pg MCHC 32.8 (31.7-36.0) g/dL RDW 11.5 (11.2-14.1) % Plt Count 406 H D (150-350) K/uL Neut % (Auto) 65.5 (45.0-80.0) % Lymph % (Auto) 21.3 (10.0-50.0) % [place]ike % (Auto) 10.7 (2.0-14.0) % Eos % (Auto) 2.1 (0.0-5.0) % Baso % (Auto) 0.4 (0.0-2.0) % Neut # (Auto) 8.59 H (1.40-7.00) K/uL Lymph # (Auto) 2.80 (0.50-3.50) K/uL Pike # (Auto) 1.40 H (0.00-1.00) K/uL Eos # (Auto) 0.28 (0.00-0.50) K/uL Baso # (Auto) 0.05 (0.00-0.20) K/uL Sodium 140 (136-145) mmol/L Potassium 3.1 L (3.5-5.1) mmol/L Chloride 103 (98-107) mmol/L Carbon Dioxide 17.3 L D (21.0-32.0) mmol/L BUN 6 L (7-18) mg/dL Creatinine 0.46 L (0.51-1.17) mg/dL Est Cr Clr Drug Dosing 106.26 mL/min Estimated GFR (MDRD) > 60 mL/min Glucose 128 H (74-106) mg/dL Lactic Acid (0.4-2.0) mmol/L Calcium 9.1 (8.5-10.1) mg/dL Magnesium 1.6 L (1.8-2.4) mg/dL Total Bilirubin 0.6 (0.2-1.0) mg/dL AST 26 (15-37) U/L ALT 30 (12-78) U/L Alkaline Phosphatase 86 (46-116) IU/L Total Protein 7.9 (6.4-8.2) g/dL Albumin 3.1 L (3.4-5.0) g/dL Specimen Type Urine Color Urine Appearance Urine pH (5.0-9.0) Ur Specific [place] (1.005-1.030) Urine Protein (NEGATIVE) mg/dL Urine Glucose (UA) (NEGATIVE) mg/dL Urine Ketones (NEGATIVE) mg/dL Urine Occult Blood (NEGATIVE) Urine Nitrite (NEGATIVE) Urine Bilirubin (NEGATIVE) Urine Urobilinogen (0.2-1.0) E.U./dL Ur Leukocyte Esterase (NEGATIVE) Urine RBC /HPF Urine WBC /HPF Ur Epithelial Cells /LPF Urine Bacteria (NONE TO FEW) /HPF 10/29/19 10/29/19 10/29/19 Range/Units 07:25 08:35 15:15 WBC (4.0-10.2) K/uL RBC (3.77-5.09) M/uL Hgb (11.7-15.5) g/dL Hct (34.0-46.0) % MCV (84.0-98.0) fL MCH (28.2-33.3) pg MCHC (31.7-36.0) g/dL RDW (11.2-14.1) % Plt Count (150-350) K/uL Neut % (Auto) (45.0-80.0) % Lymph % (Auto) (10.0-50.0) % Pike % (Auto) (2.0-14.0) % Eos % (Auto) (0.0-5.0) % Baso % (Auto) (0.0-2.0) % Neut # (Auto) (1.40-7.00) K/uL Lymph # (Auto) (0.50-3.50) K/uL Pike # (Auto) (0.00-1.00) K/uL Eos # (Auto) (0.00-0.50) K/uL Baso # (Auto) (0.00-0.20) K/uL Sodium (136-145) mmol/L Potassium 3.1 L (3.5-5.1) mmol/L Chloride (98-107) mmol/L Carbon Dioxide (21.0-32.0) mmol/L BUN (7-18) mg/dL Creatinine (0.51-1.17) mg/dL Est Cr Clr Drug Dosing mL/min Estimated GFR (MDRD) mL/min Glucose (74-106) mg/dL Lactic Acid 1.9 (0.4-2.0) mmol/L Calcium (8.5-10.1) mg/dL Magnesium (1.8-2.4) mg/dL Total Bilirubin (0.2-1.0) mg/dL AST (15-37) U/L ALT (12-78) U/L Alkaline Phosphatase (46-116) IU/L Total Protein (6.4-8.2) g/dL Albumin (3.4-5.0) g/dL Specimen Type Urinvoid Urine Color Dark yellow Urine Appearance Cloudy Urine pH 6.0 (5.0-9.0) Ur Specific [place] >= 1.030 (1.005-1.030) Urine Protein 30 H (NEGATIVE) mg/dL Urine Glucose (UA) Negative (NEGATIVE) mg/dL Urine Ketones >=160 H (NEGATIVE) mg/dL Urine Occult Blood Negative (NEGATIVE) Urine Nitrite Positive H (NEGATIVE) Urine Bilirubin Negative (NEGATIVE) Urine Urobilinogen 0.2 (0.2-1.0) E.U./dL Ur Leukocyte Esterase Negative (NEGATIVE) Urine RBC Not seen /HPF Urine WBC 10-20 H /HPF Ur Epithelial Cells Many H /LPF Urine Bacteria Many H (NONE TO FEW) /HPF 10/30/19 10/30/19 Range/Units 07:20 07:20 WBC 10.9 H (4.0-10.2) K/uL RBC 3.62 L (3.77-5.09) M/uL Hgb 10.7 L (11.7-15.5) g/dL Hct 33.5 L (34.0-46.0) % MCV 92.5 (84.0-98.0) fL MCH 29.6 (28.2-33.3) pg MCHC 31.9 (31.7-36.0) g/dL RDW 11.8 (11.2-14.1) % Plt Count 341 (150-350) K/uL Neut % (Auto) 56.4 (45.0-80.0) % Lymph % (Auto) 26.7 (10.0-50.0) % Pike % (Auto) 12.5 (2.0-14.0) % Eos % (Auto) 3.9 (0.0-5.0) % Baso % (Auto) 0.5 (0.0-2.0) % Neut # (Auto) 6.15 (1.40-7.00) K/uL Lymph # (Auto) 2.92 (0.50-3.50) K/uL [place]ike # (Auto) 1.37 H (0.00-1.00) K/uL Eos # (Auto) 0.43 (0.00-0.50) K/uL Baso # (Auto) 0.05 (0.00-0.20) K/uL Sodium 143 (136-145) mmol/L Potassium 3.4 L (3.5-5.1) mmol/L Chloride 107 (98-107) mmol/L Carbon Dioxide 23.9 (21.0-32.0) mmol/L BUN 3 L (7-18) mg/dL Creatinine 0.47 L (0.51-1.17) mg/dL Est Cr Clr Drug Dosing 104.00 mL/min Estimated GFR (MDRD) > 60 mL/min Glucose 104 (74-106) mg/dL Lactic Acid (0.4-2.0) mmol/L Calcium 8.6 (8.5-10.1) mg/dL Magnesium (1.8-2.4) mg/dL Total Bilirubin 0.3 (0.2-1.0) mg/dL AST 23 (15-37) U/L ALT 27 (12-78) U/L Alkaline Phosphatase 75 (46-116) IU/L Total Protein 7.0 (6.4-8.2) g/dL Albumin 2.7 L (3.4-5.0) g/dL Specimen Type Urine Color Urine Appearance Urine pH (5.0-9.0) Ur Specific [place] (1.005-1.030) Urine Protein (NEGATIVE) mg/dL Urine Glucose (UA) (NEGATIVE) mg/dL Urine Ketones (NEGATIVE) mg/dL Urine Occult Blood (NEGATIVE) Urine Nitrite (NEGATIVE) Urine Bilirubin (NEGATIVE) Urine Urobilinogen (0.2-1.0) E.U./dL Ur Leukocyte Esterase (NEGATIVE) Urine RBC /HPF Urine WBC /HPF Ur Epithelial Cells /LPF Urine Bacteria (NONE TO FEW) /HPF BAKARI Results - Last 24 hrs: Microbiology 10/29/19 07:25 Aerobic Blood Culture - Preliminary Blood - Venous - Lab Draw NO GROWTH AFTER 1 DAY Anaerobic Blood Culture - Preliminary NO GROWTH AFTER 1 DAY 10/29/19 07:18 Aerobic Blood Culture - Preliminary Blood - Venous NO GROWTH AFTER 1 DAY Anaerobic Blood Culture - Preliminary NO GROWTH AFTER 1 DAY Microbiology 10/29/19 07:25 Blood - Venous - Lab Draw Aerobic Blood Culture - Preliminary NO GROWTH AFTER 1 DAY 10/29/19 07:25 Blood - Venous - Lab Draw Anaerobic Blood Culture - Preliminary NO GROWTH AFTER 1 DAY 10/29/19 07:18 Blood - Venous Aerobic Blood Culture - Preliminary NO GROWTH AFTER 1 DAY 10/29/19 07:18 Blood - Venous Anaerobic Blood Culture - Preliminary NO GROWTH AFTER 1 DAY Urine culture and sensitivity still pending Med Orders - Current: Current Medications Acetaminophen (Tylenol) 650 mg PO Q4H PRN PRN Reason: Pain Last Admin: 10/30/19 08:40 Dose: 650 mg Aspirin (Aspirin) 325 mg PO BID [facility] Stop: 11/21/19 08:01 Last Admin: 10/30/19 08:15 Dose: 325 mg Doxepin HCl (Sinequan) 25 mg PO BEDTIME [facility] Last Admin: 10/29/19 19:39 Dose: 25 mg Enoxaparin Sodium (Lovenox) 40 mg SUBCUT Q24H [facility] Last Admin: 10/29/19 18:25 Dose: 40 mg Famotidine (Pepcid) 20 mg IVPUSH BID@0900,2100 [facility] Last Admin: 10/30/19 08:16 Dose: 20 mg Lactated Ringer's (Ringers, Lactated) 1,000 mls @ 100 mls/hr IV ASDIRECTED [facility] Last Admin: 10/30/19 05:59 Dose: 100 mls/hr Ceftriaxone Sodium 1 gm/ (Sodium Chloride) 100 mls @ 200 mls/hr IV Q12H [facility] Last Admin: 10/30/19 06:06 Dose: 200 mls/hr Loperamide HCl (Imodium Ad) 4 mg PO Q6H PRN PRN Reason: Diarrhea Lorazepam (Ativan) 1 mg PO Q6H PRN PRN Reason: Anxiety Last Admin: 10/29/19 12:12 Dose: 1 mg Ondansetron HCl (Zofran) 4 mg IVPUSH Q6H PRN PRN Reason: Nausea/Vomiting Orphenadrine Citrate (Norflex) 100 mg PO BID PRN PRN Reason: muscle spasms Last Admin: 10/30/19 12:35 Dose: 100 mg Pantoprazole Sodium (Protonix Iv) 40 mg IVPUSH BID@0900,2100 [facility] Last Admin: 10/30/19 08:15 Dose: 40 mg Pregabalin (Lyrica) 75 mg PO BID [facility] Last Admin: 10/30/19 08:15 Dose: 75 mg Propranolol HCl (Inderal La) 60 mg PO BEDTIME [facility] Last Admin: 10/29/19 19:39 Dose: 60 mg Sodium Chloride (Saline Flush) 10 ml FLUSH ASDIRECTED PRN PRN Reason: Keep Vein Open Last Admin: 10/30/19 08:16 Dose: 10 ml Sodium Chloride (Saline Flush) 10 ml FLUSH ASDIRECTED PRN PRN Reason: Keep Vein Open Temazepam (Restoril) 15 mg PO BEDTIME PRN PRN Reason: Insomnia Last Admin: 10/29/19 20:39 Dose: 15 mg Venlafaxine HCl (Effexor Xr) 150 mg PO DAILY [facility] Last Admin: 10/30/19 08:15 Dose: 150 mg Discontinued Medications Famotidine (Pepcid) 20 mg IVPUSH Q12H [facility] Last Admin: 10/29/19 12:12 Dose: 20 mg Potassium Chloride 10 meq/ (Premix) 50 mls @ 50 mls/hr IV ONETIME ONE Stop: 10/29/19 09:56 Last Admin: 10/29/19 09:42 Dose: 50 mls/hr Sodium Chloride (Normal Saline) 1,000 mls @ 999 mls/hr IV .BOLUS ONE Stop: 10/29/19 09:57 Last Admin: 10/29/19 09:41 Dose: 999 mls/hr Sodium Chloride (Normal Saline) 1,000 mls @ 150 mls/hr IV ASDIRECTED [facility] Last Admin: 10/29/19 12:10 Dose: 150 mls/hr Potassium Chloride 10 meq/ (Premix) 50 mls @ 50 mls/hr IV ONETIME ONE Stop: 10/29/19 12:59 Last Admin: 10/29/19 12:11 Dose: 50 mls/hr Ceftriaxone Sodium 1 gm/ (Sodium Chloride) 100 mls @ 200 mls/hr IV Q112H [facility] Pantoprazole Sodium (Protonix Iv) 40 mg IVPUSH Q12H [facility] Last Admin: 10/29/19 12:12 Dose: 40 mg Potassium Chloride (Klor-Con M20) 40 meq PO ONETIME ONE Stop: 10/29/19 18:01 Last Admin: 10/29/19 18:23 Dose: 40 meq Prochlorperazine Edisylate (Compazine) 10 mg IM ONETIME ONE Stop: 10/29/19 09:16 Last Admin: 10/29/19 09:43 Dose: 10 mg - Exam Quality Assessment: Reports: DVT Prophylaxis. Denies: Supplemental Oxygen, Central Line/PICC, Urine Catheter, Skin Breakdown, Restraints General: Reports: Alert, Oriented, Cooperative, No Acute Distress HEENT: Reports: Pupils Equal, Pupils Reactive, Mucous Membr. Moist/[place] Neck: Reports: Supple, Trachea Midline, No JVD, No Thyromegaly, +2 Carotid Pulse wo Bruit. Denies: Lymphadenopathy Lungs: Reports: Clear to Auscultation, Normal Respiratory Effort. Denies: Rub Cardiovascular: Reports: Regular Rate, Regular Rhythm, No Murmurs. Denies: Gallops, Rubs GI/Abdominal Exam: Normal Bowel Sounds, Soft, Non-Tender, No Organomegaly, No Distention, No Abnormal Bruit, No Mass, Other (Obese). No: Guarding (Female) Exam: Deferred Rectal (Female) Exam: Deferred Back Exam: Reports: Normal Inspection, Full Range of Motion. Denies: CVA Tenderness (L), CVA Tenderness (R), Muscle Spasm Extremities: Non-Tender, Normal Capillary Refill, Pedal Edema (+1 bilateral pedal/pretibial edema), Joint Swelling (Mild normal postoperative left knee effusion), Limited Range of Motion (Left Knee secondary to recent knee surgery) . No: Kathryn's Sign, Increased Warmth Skin: Denies: Rash, Ecchymosis Wound/Incisions: Reports: Healing Well, No Drainage. Denies: Erythema Neurological: Reports: No New Focal Deficit Psy/Mental Status: Reports: Alert, Anxious (Mild to moderate although improved prior to discharge), Depressed (Mild). Denies: Agitated, Hallucinations, Withdrawal Symptoms
== END 2019-10-30 15:45 | disposition home or self-care (01) ==
LOC: LL.ED 07:11 → LL.MS 08:09 → UNDOADMOB 08:09 → LL.MS 08:54
PROVIDERS: ADMIT Emergency Medicine; ATTEND Family Medicine
DX: K52.9 Noninfective gastroenteritis and colitis, unspecified (principal); N39.0 Urinary tract infection, site not specified; F41.8 Other specified anxiety disorders; M17.0 Bilateral primary osteoarthritis of knee; M19.072 Primary osteoarthritis, left ankle and foot; M19.071 Primary osteoarthritis, right ankle and foot; M47.819 Spondylosis without myelopathy or radiculopathy, site unspecified; E88.09 Other disorders of plasma-protein metabolism, not elsewhere classified; G62.9 Polyneuropathy, unspecified; D64.9 Anemia, unspecified; E86.0 Dehydration; K21.9 Gastro-esophageal reflux disease without esophagitis; I10 Essential (primary) hypertension; E87.6 Hypokalemia; E66.01 Morbid (severe) obesity due to excess calories; Z88.8 Allergy status to other drugs, medicaments and biological substances; Z88.6 Allergy status to analgesic agent; Z79.82 Long term (current) use of aspirin; Z79.899 Other long term (current) drug therapy; Z96.652 Presence of left artificial knee joint
CPT/HCPCS: 36415; 80053; 81001; 83605; 83735; 84132; 85025; 87040; 87086; 87088; 87186; 96361; 96365; 96366; 96367; 96372; 96375; 96376; 97162-GP; 97530-GP; 99284; A9270-GY; C9113; G0378; J0696; J0780; J1650; J3480; J3490; J7030; J7050; J7120

== ENCOUNTER 2019-12-21 06:24 | Emergency (ER) | payer BC, OTHER ==
[2019-12-21] MEDS ORDERED: Diphtheria,Pertussis(Acell),Tetanus Vaccine 0.5 ML SDV IM ONE (06:45)
[2019-12-21] MEDS ORDERED: Bacitracin/Neomycin/Polymyxin B Oint 0.9 GM U/D Packet TOP ONE (06:45)
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
== END 2019-12-21 08:00 | disposition home or self-care (01) ==
LOC: LL.ED 06:24
DX: S81.012A Laceration without foreign body, left knee, initial encounter (principal); F41.8 Other specified anxiety disorders; K21.9 Gastro-esophageal reflux disease without esophagitis; M15.0 Primary generalized (osteo)arthritis; I10 Essential (primary) hypertension; E66.9 Obesity, unspecified; Z68.41 Body mass index [BMI] 40.0-44.9, adult; Z23 Encounter for immunization; Z88.5 Allergy status to narcotic agent; Z88.8 Allergy status to other drugs, medicaments and biological substances; Z79.899 Other long term (current) drug therapy; W01.198A Fall on same level from slipping, tripping and stumbling with subsequent striking against other object, initial encounter
CPT/HCPCS: 12004; 90471; 90715; 99283-25; J2001

== ENCOUNTER 2023-09-10 18:31 | Emergency (ER) | payer BC, OTHER ==
[2023-09-10] MEDS ORDERED: Take Home: Cefuroxime 500 MG Tab, 6 Tab Pack PO ONE (19:26)
[2023-09-10] MEDS ORDERED: traMADol 50 MG Tab PO ONE (19:27)
== END 2023-09-10 20:00 | disposition home or self-care (01) ==
LOC: LL.ED 18:31
DX: H66.001 Acute suppurative otitis media without spontaneous rupture of ear drum, right ear (principal); I10 Essential (primary) hypertension; K21.9 Gastro-esophageal reflux disease without esophagitis; E66.9 Obesity, unspecified; Z68.30 Body mass index [BMI] 30.0-30.9, adult; Z88.8 Allergy status to other drugs, medicaments and biological substances; Z79.899 Other long term (current) drug therapy
CPT/HCPCS: 99283; A9270-GY

== ENCOUNTER 2025-09-18 17:22 | Emergency (ER) | payer BC ==
[2025-09-18] MEDS: Norepinephrine Bit/D5W Premix 4 MG/250 ML BAG IV SCH (18:02)
[2025-09-18] MEDS: Sodium Chloride 0.9% 10 ML Syringe FLUSH PRN (18:02)
[2025-09-18 18:09] LABS: BASOPHILS ABSOLUTE AUTO 0.07 K/uL (0.00-0.20); BASOPHILS PERCENT AUTO 0.6 % (0.0-2.0); EOSINOPHILS ABSOLUTE AUTO 0.09 K/uL (0.00-0.50); EOSINOPHILS PERCENT AUTO 0.8 % (0.0-5.0); IMMATURE GRAN ABSOLUTE AUTO 0.03 10^3/uL (0.00-0.04); IMMATURE GRAN PERCENT AUTO 0.3 % (0.0-0.4); LYMPHOCYTES ABSOLUTE AUTO 3.42 K/uL (0.50-3.50); LYMPHOCYTES PERCENT AUTO 30.6 % (10.0-50.0); MONOCYTES ABSOLUTE AUTO 1.18 K/uL (0.00-1.00); MONOCYTES PERCENT AUTO 10.6 % (2.0-14.0); NEUTROPHILS ABSOLUTE AUTO 6.37 K/uL (1.40-7.00); NEUTROPHILS PERCENT AUTO 57.1 % (45.0-80.0); PLATELET COUNT,PLT 457 K/uL (150-350); RED BLOOD CELL COUNT 4.97 M/uL (3.77-5.09); RED CELL DISTRIBUTION WIDTH 12.1 % (11.2-14.1); WHITE BLOOD CELL COUNT,WBC 11.2 K/uL (4.0-10.2)
[2025-09-18 18:28] LABS: ALANINE AMINOTRANSFERASE,ALT 30.0 U/L (12-78); ASPARTATE AMNIOTRANSFERASE,AST 18.0 U/L (15-37); BILIRUBIN TOTAL 0.7 mg/dL (0.2-1.0); BLOOD UREA NITROGEN,BUN 12.0 mg/dL (7-18); CARBON DIOXIDE,CO2 22.8 mmol/L (21.0-32.0); CHLORIDE,CL 105.0 mmol/L (98-107); CREATININE 1.1 mg/dL (0.51-1.17); EST CRCL DRUG DOSING (CG) 41.51 mL/min; GLUCOSE RANDOM 159.0 mg/dL (70-99); POTASSIUM,K 3.4 mmol/L (3.5-5.1); PROTEIN TOTAL,TP 8.2 g/dL (6.4-8.2); SODIUM,NA 145.0 mmol/L (136-145)
[2025-09-18] MEDS: LORazepam 2 MG/ML SDV IVPUSH ONE (18:28)
[2025-09-18 18:33] LABS: ESTIMATED GFR 59.0 mL/min (>=60); LACTIC ACID 4.5 mmol/L (0.4-2.0)
[2025-09-18 18:41] LABS: APPEARANCE,URINE CLOUDY; GLUCOSE,URINE NEGATIVE (NEGATIVE); OCCULT BLOOD,URINE TRACE-INTACT (NEGATIVE)
[2025-09-18] MEDS: Ondansetron 4 MG/2 ML SDV IVPUSH ONE (18:47)
[2025-09-18 18:50] LABS: SQUAMOUS EPITHELIAL CELLS,UR OCCASIONAL /HPF (NOT SEEN)
[2025-09-18 19:31] LABS: AMPHETAMINES SCREEN, URINE NEGATIVE (NEGATIVE); COCAINE METABOLITES,URINE NEGATIVE (NEGATIVE); EDDP,URINE SCREEN NEGATIVE (NEGATIVE); METHAMPHETAMINES SCREEN, URINE NEGATIVE (NEGATIVE)
[2025-09-18 19:32] LABS: BUPRENORPHINE SCREEN,URINE NEGATIVE (NEGATIVE); OXYCODONE SCREEN,URINE NEGATIVE (NEGATIVE); TCA SCREEN,URINE NEGATIVE (NEGATIVE); THC SCREEN,URINE 50 NG/ML NEGATIVE (NEGATIVE)
[2025-09-18 19:49] LABS: BASE EXCESS VENOUS -1 mmol/L ((-2)-3); BICARBONATE,VENOUS 22 mmol/L (23-28); O2 DELIVERY DEVICE NASAL CANNULA; O2 SATURATION VENOUS 75 %; PCO2 VENOUS 32 mmHG (41-51); PH,VENOUS 7.44 (7.31-7.41); PO2 VENOUS 38 mmHG
== END 2025-09-18 20:00 ==
LOC: LL.ED 17:22
DX: A41.9 Sepsis, unspecified organism (principal); R65.21 Severe sepsis with septic shock; N39.0 Urinary tract infection, site not specified; F41.9 Anxiety disorder, unspecified; I10 Essential (primary) hypertension; K21.9 Gastro-esophageal reflux disease without esophagitis; Z88.0 Allergy status to penicillin; Z88.8 Allergy status to other drugs, medicaments and biological substances; Z79.899 Other long term (current) drug therapy
CPT/HCPCS: 36415; 51702; 71045; 80053; 80305-QW; 81001; 82803; 83605; 85025; 85379; 86140; 87040; 87086; 87088; 87428-QW; 93005; 93010; 96365; 96366; 96368; 96375; 99284; 99285-25; J0696; J2060; J2270; J2405; J3373; J7030; J7040

== ENCOUNTER 2025-10-24 16:44 | Emergency (ER) | payer BC ==
[2025-10-24 17:06] LABS: BASOPHILS ABSOLUTE AUTO 0.08 K/uL (0.00-0.20); BASOPHILS PERCENT AUTO 0.7 % (0.0-2.0); EOSINOPHILS ABSOLUTE AUTO 0.47 K/uL (0.00-0.50); EOSINOPHILS PERCENT AUTO 4.0 % (0.0-5.0); IMMATURE GRAN ABSOLUTE AUTO 0.02 10^3/uL (0.00-0.04); IMMATURE GRAN PERCENT AUTO 0.2 % (0.0-0.4); LYMPHOCYTES ABSOLUTE AUTO 3.33 K/uL (0.50-3.50); LYMPHOCYTES PERCENT AUTO 28.3 % (10.0-50.0); MONOCYTES ABSOLUTE AUTO 1.10 K/uL (0.00-1.00); MONOCYTES PERCENT AUTO 9.3 % (2.0-14.0); NEUTROPHILS ABSOLUTE AUTO 6.77 K/uL (1.40-7.00); NEUTROPHILS PERCENT AUTO 57.5 % (45.0-80.0); PLATELET COUNT,PLT 349 K/uL (150-350); RED BLOOD CELL COUNT 4.73 M/uL (3.77-5.09); RED CELL DISTRIBUTION WIDTH 11.7 % (11.2-14.1); WHITE BLOOD CELL COUNT,WBC 11.8 K/uL (4.0-10.2)
[2025-10-24] MEDS ORDERED: Naloxone 0.4 MG/ML SDV IVPUSH PRN (17:26)
[2025-10-24] MEDS: fentaNYL 50 MCG/ML SDV IVPUSH ONE ×2 (17:30→19:59)
[2025-10-24 17:32] LABS: LACTIC ACID 4.2 mmol/L (0.4-2.0)
[2025-10-24 17:33] LABS: ALANINE AMINOTRANSFERASE,ALT 24 U/L (12-78); ASPARTATE AMNIOTRANSFERASE,AST 20 U/L (15-37); BILIRUBIN TOTAL 0.5 mg/dL (0.2-1.0); BLOOD UREA NITROGEN,BUN 13 mg/dL (7-18); CARBON DIOXIDE,CO2 25.6 mmol/L (21.0-32.0); CHLORIDE,CL 103 mmol/L (98-107); CREATININE 1.06 mg/dL (0.51-1.17); GLUCOSE RANDOM 123 mg/dL (70-99); PRO B-TYPE NATRIUR PEPT,BNPPRO 102 pg/mL (0-125); PROTEIN TOTAL,TP 8.2 g/dL (6.4-8.2); SODIUM,NA 143 mmol/L (136-145)
[2025-10-24 17:35] LABS: ESTIMATED GFR 62 mL/min (>=60)
[2025-10-24 17:40] LABS: APPEARANCE,URINE CLOUDY; GLUCOSE,URINE NEGATIVE (NEGATIVE); OCCULT BLOOD,URINE LARGE (NEGATIVE)
[2025-10-24 17:41] LABS: POTASSIUM,K 2.9 mmol/L (3.5-5.1)
[2025-10-24 18:01] LABS: INR 1.1 (0.9-1.1); PTT,PARTIAL THROMBOPLSTIN TIME 23.0 SEC (23.8-34.4)
[2025-10-24] MEDS: Sodium Chloride 0.9% 10 ML Syringe FLUSH PRN (19:08)
== END 2025-10-24 20:10 ==
LOC: LL.ED 16:44
DX: A41.9 Sepsis, unspecified organism (principal); T83.193A Other mechanical complication of other urinary stent, initial encounter; I10 Essential (primary) hypertension; K21.9 Gastro-esophageal reflux disease without esophagitis; Z88.8 Allergy status to other drugs, medicaments and biological substances; Z88.0 Allergy status to penicillin; Z79.899 Other long term (current) drug therapy
CPT/HCPCS: 36415; 51702; 51798; 80053; 81001; 83605; 83880; 84484; 85025; 85610; 85730; 87040; 87086; 96365; 96366; 96375; 96376; 99285-25; J0696; J3010; J3373; J7030; J7040